=== PATIENT | female | born 1970 | race Caucasian/White ===

== ENCOUNTER 2019-06-08 19:14 | Emergency (ER) | payer OTHER ==
[~2019-06-08] VITALS: Ht 160 cm; Wt 117.9 kg
--- NOTE | 2019-06-08 21:41 | Diagnostic Imaging Report ---
CT [facility] HISTORY: Headache COMPARISON: None. TECHNIQUE: Noncontrast axial scans were obtained from skull base to the vertex. Coronal and sagittal reconstructions obtained from the axial data. One or more of the following dose reduction techniques were used: Automated exposure control, adjustment of the mA and/or kV according to patient size, and/or utilization of iterative reconstruction technique. DISCUSSION: Scalp/Skull: Unremarkable. Brain sulci: Mildly prominent. Ventricles: Mild compensatory dilatation. Extra-axial spaces: No masses or fluid collections. Parenchyma: No abnormal densities. No mass, hemorrhage, or large vascular territory acute infarct. Dural sinuses: No abnormal densities. Sellar/Suprasellar region: Intact. Skull base: Intact. Incidental findings: None. IMPRESSION: 1. No acute intracranial abnormalities. 2. Mild generalized cerebral volume loss. Signed by: Dr. Jose A De Jesus M.D. on 06/08/2019 9:37 PM
--- NOTE | 2019-06-08 21:46 | Diagnostic Imaging Report ---
[facility]: Headache COMPARISON: Concurrent head CT TECHNIQUE: Axial CT images through the face were obtained without contrast. Coronal/sagittal reformations were created. One or more of the following dose reduction techniques were used: Automated exposure control, adjustment of the mA and/or kV according to patient size, and/or utilization of iterative reconstruction technique. DISCUSSION: Right-sided dental streak artifacts obscure some details. No acute fracture is seen. Mild atlantoaxial arthrosis is present. Mild, chronic, corticated deformity of the right mandibular condyle may be from remote trauma; associated small corticated osseous fragment is seen along the anterior right temporomandibular joint. There are also mild degenerative changes at the left temporomandibular joint. The orbits are intact. Intraorbital contents are grossly unremarkable. The paranasal sinuses, major drainage pathways, and nasal cavities are clear. The nasal septum is slightly deviated to the left. A few small left palatine tonsilloliths are present. IMPRESSION: 1. No acute osseous abnormality. 2. The paranasal sinuses, major drainage pathways, and nasal cavities are clear. 3. Mild chronic deformity of the right mandibular condyle may be from remote trauma. Associated mild left temporomandibular joint degenerative changes. Signed by: Dr. Jose A De Jesus M.D. on 06/08/2019 9:43 PM
[2019-06-08] MEDS ORDERED: FIORICET 50-301 EACH PO (22:08)
[2019-06-08 22:13] VITALS: BP 149/89
== END 2019-06-08 22:24 | disposition home or self-care (01) ==
LOC: FSED 19:14
DX: G44.209 Tension-type headache, unspecified, not intractable (principal)
CPT/HCPCS: 70450; 70486; 99283

== ENCOUNTER 2024-02-24 01:19 | Emergency (ER) | payer OTHER ==
[~2024-02-24] VITALS: Ht 162.6 cm; Wt 97.5 kg
[~2024-02-24 01:19] MED LIST: FIORICET 50-301 EACH PO
[2024-02-24 01:24] VITALS: PULSE 88; RESP 18; TEMP 97.7
[2024-02-24] MEDS ORDERED: PREDNISONE50 MG PO (01:59)
[2024-02-24] MEDS: DEXAMETHASONE SOD PHOS INJ 4 MG/ML SDV IM ONE (02:09)
[2024-02-24 02:14] VITALS: BP 131/78; PULSE 88; RESP 18; TEMP 97.7; O2SAT 97
== END 2024-02-24 02:16 | disposition home or self-care (01) ==
LOC: FSED 01:24
DX: M54.2 Cervicalgia (principal); M53.82 Other specified dorsopathies, cervical region; I10 Essential (primary) hypertension; K21.9 Gastro-esophageal reflux disease without esophagitis; E28.2 Polycystic ovarian syndrome; F41.9 Anxiety disorder, unspecified
CPT/HCPCS: 96372; 99283; J1100